=== PATIENT | male | born 1960 | race Caucasian/White ===

== ENCOUNTER 2019-12-09 07:21 | Emergency (ER) | payer BC ==
[~2019-12-09] VITALS: Ht 165.1 cm; Wt 75.3 kg
[~2019-12-09 07:21] MED LIST: COL100 PO; KEFLEX500 MG PO; LAC PO; NORCO1 TA2 PO
[2019-12-09 07:35] VITALS: Ht 165.1 cm; Wt 75.3 kg
[2019-12-09 08:13] LABS: BASOPHIL % 0.4 % (0-2)
[2019-12-09 08:46] LABS: ALKALINE PHOSPHATASE 111 U/L (46-116); ALT/SGPT 35 U/L (16-63); AST/SGOT 26 U/L (15-37); BILIRUBIN TOTAL 0.5 mg/dL (0.20-1.00); CARBON DIOXIDE 18.4 mmol/L (21-32); CHLORIDE SERUM 103 mmol/L (98-107); CREATININE SERUM 1.2 mg/dL (0.7-1.3); GFR1 > 60 mL/min; GLUCOSE SERUM 169 mg/dL (74-106); POTASSIUM SERUM 3.1 mmol/L (3.5-5.1); SODIUM SERUM 138 mmol/L (136-145); TOTAL PROTEIN, SERUM 8.5 g/dL (6.4-8.2); URIC ACID 5.4 mg/dL (3.5-7.2)
[2019-12-09 08:53] LABS: PLATELET COUNT 259 x10^3mcL (130-400); RED CELL DISTRIBUTION WIDTH 13.4 % (11.5-14.5)
[2019-12-09 10:25] LABS: microscopic required? YES; urine erythrocyte 3+ (NEGATIVE)
[2019-12-09 13:39] VITALS: BP 123/71
== END 2019-12-09 13:39 | disposition home or self-care (01) ==
LOC: ED 07:21
PROVIDERS: Emergency Medicine
DX: K57.30 Diverticulosis of large intestine without perforation or abscess without bleeding (principal); J18.9 Pneumonia, unspecified organism; N23 Unspecified renal colic
CPT/HCPCS: J1885; J2270; J2405; J7030